=== PATIENT | female | born 1935 | race Caucasian/White ===

== ENCOUNTER 2016-05-09 14:25 | Inpatient (IN) | payer OTHER, BC ==
[~2016-05-09] VITALS: Ht 162.6 cm; Wt 55.0 kg
[~2016-05-09 14:25] MED LIST: ASPIRIN EC325 MG PO; CELECOXIB200 MG PO; ENDOCET 5-3251 EACH PO; IRON325 M1 PO; LOPRESSOR25 MG PO; OXYCONTIN10 MG PO; OXYCONTIN30 MG PO; PREDNISONE10 MG PO; PRILOSEC40 MG PO; PRINIVIL10 MG PO; SUCRALFATE1 GM PO; TYLENOL EXTRA500 MG PO; VENTOLIN HFA18 GM IH; VIACTIV SOFT C1 EACH PO; ZANTAC150 MG PO; ZOFRAN4 MG PO; [UNRECOGNIZED DRUG - OTHER] TP; [UNRECOGNIZED DRUG - OTHER] TP; [UNRECOGNIZED DRUG - OTHER] TP
[2016-05-09 15:20] LABS: HEMATOCRIT 48.1 % (36.0-46.0); MCH 29.2 PG (29.0-34.0); MCHC 33.1 G/DL (30.0-36.0); MCV 88.4 FL (83-99); MEAN PLAT.VOLUME 11.4 uM^3 (9.5-12.4); PLATELET COUNT 265 K/uL (156-360); RBC DIS.WIDTH-CV 13.5 % (11.8-14.6); RED BLOOD COUNT 5.44 M/uL (3.80-5.20); WHITE BLOOD COUNT 19.8 K/uL (4.1-10.2)
[2016-05-09 15:34] LABS: CHLORIDE 98 mEq/L (99-109); POTASSIUM 4.1 mEq/L (3.7-5.4); SODIUM 137 mEq/L (136-147)
[2016-05-09 15:37] LABS: GLUCOSE 118 mg/dL (70-99)
[2016-05-09 15:38] LABS: ANION GAP 16 MEQ/L (2-14)
[2016-05-09 15:39] LABS: TOTAL BILIRUBIN 0.7 mg/dL (0.0-1.0)
[2016-05-09 15:40] LABS: ALKALINE PHOSPHATASE 102 IU/L (3-129); GFR ESTIMATE (CALCULATED) > 59 mL/min/
[2016-05-09 15:41] LABS: UREA NITROGEN (BUN) 13 mg/dL (9-23)
[2016-05-09] MEDS ORDERED: CARAFATE1 GM PO (18:09)
[2016-05-09] MEDS ORDERED: DAILY VITE1 EAC1 PO (18:10)
[2016-05-09] MEDS ORDERED: TRAMADOL HCL50 MG PO (18:10)
[2016-05-09 18:36] LABS: INTER. NORMALIZED RATIO 1.1; PROTHROMBIN TIME 11.1 (9.2-11.2)
[2016-05-09 18:46] LABS: ADD MIUA? YES; BILIRUBIN NEGATIVE; BLOOD TRACE; COLOR YELLOW ((YELLOW)); GLUCOSE (STRIP) NEGATIVE; KETONES NEGATIVE; LEUKOCYTES NEGATIVE; NITRITE NEGATIVE; PROTEIN (STRIP) NEGATIVE
[2016-05-09 19:25] LABS: BACTERIA NONE SEEN; CASTS NONE SEEN /LPF; CRYSTALS NONE SEEN; EPITHELIAL CELLS RARE; MUCUS NONE SEEN; PATHOLOGICAL CAST NONE SEEN; SMALL ROUND CELL NONE SEEN; UCUL ADDED? NO; YEAST-LIKE CELL NONE SEEN
[2016-05-09 22:57] VITALS: BP 153/67
[2016-05-10 03:53] VITALS: BP 148/60
[2016-05-10 08:10] LABS: ALKALINE PHOSPHATASE 66 IU/L (3-129); ANION GAP 8 MEQ/L (2-14); CHLORIDE 98 MEQ/L (99-109); GFR ESTIMATE (CALCULATED) > 59 mL/min/; GLUCOSE 170 mg/dL (70-99); POTASSIUM 3.8 MEQ/L (3.7-5.4); SAMPLE HEMOLYSIS CHECK 0; SAMPLE ICTERIC CHECK 0; SAMPLE LIPEMIA CHECK 0; SODIUM 132 MEQ/L (136-147); TOTAL BILIRUBIN 0.5 MG/DL (0.0-1.0); UREA NITROGEN (BUN) 9 mg/dL (9-23)
[2016-05-10 08:18] LABS: HEMATOCRIT 38.9 % (36.0-46.0); MCH 29.6 PG (29.0-34.0); MCHC 32.9 G/DL (30.0-36.0); MEAN PLAT.VOLUME 11.5 uM^3 (9.5-12.4); PLATELET COUNT 218 K/uL (156-360); RBC DIS.WIDTH-CV 13.5 % (11.8-14.6); RBC DIS.WIDTH-SD 45.1 % (39-53); WHITE BLOOD COUNT 18.4 K/uL (4.1-10.2)
[2016-05-10 08:19] LABS: RED BLOOD COUNT 4.32 M/uL (3.80-5.20)
[2016-05-10 08:35] VITALS: BP 134/63
[2016-05-10 12:49] VITALS: BP 138/66
[2016-05-10 16:00] VITALS: BP 126/62
[2016-05-10 19:30] VITALS: BP 165/80
[2016-05-11 04:00] VITALS: BP 165/87
[2016-05-11 06:42] VITALS: BP 160/76
[2016-05-11 09:17] LABS: HEMATOCRIT 40.4 % (36.0-46.0); MCH 29.9 PG (29.0-34.0); MCHC 32.9 G/DL (30.0-36.0); MCV 90.8 FL (83-99); MEAN PLAT.VOLUME 11.6 uM^3 (9.5-12.4); PLATELET COUNT 213 K/uL (156-360); RBC DIS.WIDTH-CV 13.8 % (11.8-14.6); RBC DIS.WIDTH-SD 45.9 % (39-53); RED BLOOD COUNT 4.45 M/uL (3.80-5.20); WHITE BLOOD COUNT 14.4 K/uL (4.1-10.2)
[2016-05-11 09:43] LABS: ALKALINE PHOSPHATASE 74 IU/L (3-129); ANION GAP 11 MEQ/L (2-14); CHLORIDE 99 MEQ/L (99-109); GFR ESTIMATE (CALCULATED) > 59 mL/min/; GLUCOSE 154 mg/dL (70-99); POTASSIUM 4.3 MEQ/L (3.7-5.4); SAMPLE HEMOLYSIS CHECK 0; SAMPLE ICTERIC CHECK 0; SAMPLE LIPEMIA CHECK 0; SODIUM 136 MEQ/L (136-147); TOTAL BILIRUBIN 0.6 MG/DL (0.0-1.0); UREA NITROGEN (BUN) 6 mg/dL (9-23)
[2016-05-11 11:25] VITALS: BP 164/74
[2016-05-11 16:02] VITALS: BP 117/58
[2016-05-11 23:29] VITALS: BP 165/78
[2016-05-12 07:54] VITALS: BP 148/67
[2016-05-12 15:18] VITALS: BP 161/73
[2016-05-12] MEDS ORDERED: AMOXICILLIN500 MG PO (15:58)
== END 2016-05-12 16:32 | disposition home health service (06) | DRG 417 ==
LOC: EME 14:25 → SDC 19:57 → 2EAST 21:10 → 2SOUTH 21:10 → 2EAST 22:49
PROVIDERS: Emergency Medicine; Surgery
PROC: 0FT44ZZ Resection of Gallbladder, Percutaneous Endoscopic Approach (ICD-10-PCS; principal; 2016-05-09)
DX: K81.2 Acute cholecystitis with chronic cholecystitis (principal); K65.9 Peritonitis, unspecified; B95.2 Enterococcus as the cause of diseases classified elsewhere; R26.81 Unsteadiness on feet; E86.0 Dehydration; E86.1 Hypovolemia; G89.29 Other chronic pain; M54.9 Dorsalgia, unspecified; I10 Essential (primary) hypertension; K21.9 Gastro-esophageal reflux disease without esophagitis; F32.9 Major depressive disorder, single episode, unspecified; M35.3 Polymyalgia rheumatica; E78.5 Hyperlipidemia, unspecified
CPT/HCPCS: 74177; 76705; 80053; 81003; 85027; 85610; 85730; 86850; 86900; 86901; 87070; 87075; 87077; 87186; 87205; 88304; 93005; 99281; 99285; G0378; J0131; J0295; J1100; J1170; J1644; J2270; J2405; J2710; J3010; J7030; J7050; J7120

== ENCOUNTER 2016-05-18 12:59 | Inpatient (IN) | payer OTHER, BC ==
[~2016-05-18] VITALS: Ht 167.6 cm; Wt 77.0 kg
[~2016-05-18 12:59] MED LIST changes: +AMOXICILLIN500 MG PO; +CARAFATE1 GM PO; +DAILY VITE1 EAC1 PO; +TRAMADOL HCL50 MG PO
[2016-05-18 14:04] LABS: HEMATOCRIT 40.4 % (36.0-46.0); MCH 29.2 PG (29.0-34.0); MCHC 32.9 G/DL (30.0-36.0); MCV 88.6 FL (83-99); RED BLOOD COUNT 4.56 M/uL (3.80-5.20); WHITE BLOOD COUNT 18.2 K/uL (4.1-10.2)
[2016-05-18 14:08] LABS: MEAN PLAT.VOLUME 10.4 uM^3 (9.5-12.4); PLATELET COUNT 453 K/uL (156-360)
[2016-05-18 14:16] LABS: CHLORIDE 101 mEq/L (99-109); POTASSIUM 4.6 mEq/L (3.7-5.4); SODIUM 139 mEq/L (136-147)
[2016-05-18 14:18] LABS: GLUCOSE 95 mg/dL (70-99)
[2016-05-18 14:19] LABS: ANION GAP 10 MEQ/L (2-14)
[2016-05-18 14:20] LABS: TOTAL BILIRUBIN 0.4 mg/dL (0.0-1.0)
[2016-05-18 14:21] LABS: ALKALINE PHOSPHATASE 152 IU/L (3-129)
[2016-05-18 14:22] LABS: GFR ESTIMATE (CALCULATED) > 59 mL/min/
[2016-05-18 14:23] LABS: UREA NITROGEN (BUN) 11 mg/dL (9-23)
[2016-05-18 14:25] LABS: LIPASE 51 U/L (1.0-51.0)
[2016-05-18] MEDS ORDERED: PERCOCET 5/31 TABLET PO (17:07)
[2016-05-18] MEDS ORDERED: OXYCONTIN10 MG PO (17:07)
[2016-05-18 18:33] LABS: ADD MIUA? NO; BILIRUBIN NEGATIVE; BLOOD NEGATIVE; COLOR YELLOW ((YELLOW)); GLUCOSE (STRIP) NEGATIVE; KETONES NEGATIVE; LEUKOCYTES NEGATIVE; NITRITE NEGATIVE; PROTEIN (STRIP) NEGATIVE; SPECIFIC GRAVITY 1.036 (1.000-1.030); UCUL ADDED? NO
[2016-05-18] MEDS ORDERED: GUMMI BEAR MUL1 EACH PO (19:03)
[2016-05-18 21:30] VITALS: BP 141/70
[2016-05-18 23:45] VITALS: BP 120/60
[2016-05-19] VITALS (7 sets, daily range): BP systolic 120–163; BP diastolic 57–71
[2016-05-19 07:18] LABS: HEMATOCRIT 36.7 % (36.0-46.0); MCH 29.7 PG (29.0-34.0); MCV 90.2 FL (83-99); MEAN PLAT.VOLUME 10.6 uM^3 (9.5-12.4); PLATELET COUNT 448 K/uL (156-360); RBC DIS.WIDTH-CV 14.1 % (11.8-14.6); RBC DIS.WIDTH-SD 46.7 % (39-53); RED BLOOD COUNT 4.07 M/uL (3.80-5.20); WHITE BLOOD COUNT 17.3 K/uL (4.1-10.2)
[2016-05-19 07:41] LABS: ALKALINE PHOSPHATASE 118 IU/L (3-129); ANION GAP 6 MEQ/L (2-14); CHLORIDE 98 MEQ/L (99-109); GFR ESTIMATE (CALCULATED) > 59 mL/min/; GLUCOSE 123 mg/dL (70-99); POTASSIUM 4.8 MEQ/L (3.7-5.4); SAMPLE HEMOLYSIS CHECK 0; SAMPLE ICTERIC CHECK 0; SAMPLE LIPEMIA CHECK 0; SODIUM 134 MEQ/L (136-147); TOTAL BILIRUBIN 0.5 MG/DL (0.0-1.0); UREA NITROGEN (BUN) 7 mg/dL (9-23)
[2016-05-19 12:02] LABS: INTER. NORMALIZED RATIO 1.2; PTT 36.9 (25-32)
[2016-05-20 03:35] VITALS: BP 121/72; BP 151/72
[2016-05-20 07:17] LABS: HEMATOCRIT 38.7 % (36.0-46.0); MCH 29.3 PG (29.0-34.0); MCHC 32.6 G/DL (30.0-36.0); MEAN PLAT.VOLUME 10.9 uM^3 (9.5-12.4); PLATELET COUNT 520 K/uL (156-360); RBC DIS.WIDTH-CV 14.2 % (11.8-14.6); RBC DIS.WIDTH-SD 46.9 % (39-53); WHITE BLOOD COUNT 17.5 K/uL (4.1-10.2)
[2016-05-20 07:45] LABS: ALKALINE PHOSPHATASE 136 IU/L (3-129); ANION GAP 9 MEQ/L (2-14); CHLORIDE 100 MEQ/L (99-109); GFR ESTIMATE (CALCULATED) > 59 mL/min/; GLUCOSE 134 mg/dL (70-99); POTASSIUM 4.5 MEQ/L (3.7-5.4); SAMPLE HEMOLYSIS CHECK 0; SAMPLE ICTERIC CHECK 0; SAMPLE LIPEMIA CHECK 0; SODIUM 136 MEQ/L (136-147); TOTAL BILIRUBIN 0.6 MG/DL (0.0-1.0); UREA NITROGEN (BUN) 6 mg/dL (9-23)
[2016-05-20 08:02] VITALS: BP 113/54
[2016-05-20 17:18] VITALS: BP 125/60
[2016-05-21 00:19] VITALS: BP 171/78
[2016-05-21 06:13] VITALS: BP 174/88
[2016-05-21 15:31] VITALS: BP 158/88
[2016-05-22 00:16] VITALS: BP 153/73
[2016-05-22 07:25] VITALS: BP 181/81
[2016-05-22 15:40] VITALS: BP 118/59
[2016-05-22 23:24] VITALS: BP 144/74
[2016-05-23 07:18] LABS: HEMATOCRIT 40.9 % (36.0-46.0); MCH 28.6 PG (29.0-34.0); MCV 89.3 FL (83-99); MEAN PLAT.VOLUME 10.3 uM^3 (9.5-12.4); PLATELET COUNT 657 K/uL (156-360); RBC DIS.WIDTH-SD 45.9 % (39-53); RED BLOOD COUNT 4.58 M/uL (3.80-5.20)
[2016-05-23 07:20] LABS: WHITE BLOOD COUNT 11.7 K/uL (4.1-10.2)
[2016-05-23 08:00] VITALS: BP 131/64
[2016-05-23] MEDS ORDERED: OXYCODONE HCL5 MG PO (14:41)
[2016-05-23] MEDS ORDERED: SENNA PLUS TAB1 EACH PO (14:41)
[2016-05-23] MEDS ORDERED: LEVOFLOXACIN750 MG PO (14:46)
[2016-05-23] MEDS ORDERED: ZOFRAN4 MG/2 ML IM (17:49)
[2016-05-23] MEDS ORDERED: TYLENOL REGULA325 MG PO (17:49)
== END 2016-05-23 15:57 | DRG 920 ==
LOC: EME 12:59 → EDOF 19:06 → 2EAST 19:06
PROVIDERS: Radiology Diagnostic Radiology; Surgery
PROC: 0W9G30Z Drainage of Peritoneal Cavity with Drainage Device, Percutaneous Approach (ICD-10-PCS; principal; 2016-05-19)
DX: K91.873 Postprocedural seroma of a digestive system organ or structure following other procedure (principal); K56.7 Ileus, unspecified; Y83.6 Removal of other organ (partial) (total) as the cause of abnormal reaction of the patient, or of later complication, without mention of misadventure at the time of the procedure; R26.2 Difficulty in walking, not elsewhere classified; B95.2 Enterococcus as the cause of diseases classified elsewhere; G89.29 Other chronic pain; K21.9 Gastro-esophageal reflux disease without esophagitis; M35.3 Polymyalgia rheumatica; F32.9 Major depressive disorder, single episode, unspecified; Z96.651 Presence of right artificial knee joint
CPT/HCPCS: 49405; 71020; 74177; 80053; 81003; 83605; 83690; 85027; 85610; 85730; 87040; 87070; 87075; 87077; 87186; 87205; 97530 GP; 99281; 99285; C1729; C1769; J1170; J2270; J2405; J2543; J3010; J7030; J7050

== ENCOUNTER 2016-05-23 11:58 | Inpatient (IN) | payer OTHER, BC ==
[~2016-05-23] VITALS: Ht 165.1 cm; Wt 76.6 kg
[~2016-05-23 11:58] MED LIST changes: +GUMMI BEAR MUL1 EACH PO; +PERCOCET 5/31 TABLET PO
[2016-05-23] MEDS ORDERED: OXYCODONE HCL5 MG PO (14:41)
[2016-05-23] MEDS ORDERED: SENNA PLUS TAB1 EACH PO (14:41)
[2016-05-23] MEDS ORDERED: LEVOFLOXACIN750 MG PO (14:46)
[2016-05-23 16:09] VITALS: BP 133/88
[2016-05-23] MEDS ORDERED: ZOFRAN4 MG/2 ML IM (17:49)
[2016-05-23] MEDS ORDERED: TYLENOL REGULA325 MG PO (17:49)
[2016-05-24 00:06] VITALS: BP 139/65
[2016-05-24 05:55] LABS: HEMATOCRIT 39.8 % (36.0-46.0); MCH 29.5 PG (29.0-34.0); MCHC 32.7 G/DL (30.0-36.0); MCV 90.5 FL (83-99); MEAN PLAT.VOLUME 10.5 uM^3 (9.5-12.4); PLATELET COUNT 635 K/uL (156-360); RBC DIS.WIDTH-SD 46.3 % (39-53); WHITE BLOOD COUNT 11.4 K/uL (4.1-10.2)
[2016-05-24 06:00] VITALS: BP 121/59
[2016-05-24 06:26] LABS: ANION GAP 7 MEQ/L (2-14); CHLORIDE 102 MEQ/L (99-109); GFR ESTIMATE (CALCULATED) > 59 mL/min/; GLUCOSE 99 mg/dL (70-99); POTASSIUM 3.9 MEQ/L (3.7-5.4); SAMPLE HEMOLYSIS CHECK 0; SAMPLE ICTERIC CHECK 0; SAMPLE LIPEMIA CHECK 0; SODIUM 138 MEQ/L (136-147); UREA NITROGEN (BUN) 13 mg/dL (9-23)
[2016-05-24 06:28] LABS: ALKALINE PHOSPHATASE 88 IU/L (3-129); TOTAL BILIRUBIN 0.4 MG/DL (0.0-1.0)
[2016-05-24 15:10] VITALS: BP 134/58
[2016-05-25 05:42] VITALS: BP 144/69
[2016-05-25 15:22] VITALS: BP 94/58
[2016-05-25 16:00] VITALS: BP 103/57
[2016-05-25 20:10] VITALS: BP 104/55
[2016-05-25 21:36] VITALS: BP 120/60; BP 125/60
[2016-05-26 05:02] VITALS: BP 123/58
[2016-05-26 15:21] VITALS: BP 100/54
[2016-05-27 04:24] VITALS: BP 132/74
[2016-05-27 15:38] VITALS: BP 139/65
[2016-05-28 05:43] VITALS: BP 131/63
[2016-05-28 15:41] VITALS: BP 121/58
[2016-05-29 04:54] LABS: HEMATOCRIT 41.5 % (36.0-46.0); MCH 28.8 PG (29.0-34.0); MCHC 32.3 G/DL (30.0-36.0); MCV 89.2 FL (83-99); MEAN PLAT.VOLUME 10.6 uM^3 (9.5-12.4); PLATELET COUNT 544 K/uL (156-360); RBC DIS.WIDTH-SD 44.8 % (39-53); RED BLOOD COUNT 4.65 M/uL (3.80-5.20)
[2016-05-29 05:02] LABS: CHLORIDE 105 mEq/L (99-109); SODIUM 142 mEq/L (136-147)
[2016-05-29 05:04] LABS: POTASSIUM 5.1 mEq/L (3.7-5.4)
[2016-05-29 05:05] LABS: GLUCOSE 103 mg/dL (70-99)
[2016-05-29 05:06] LABS: ANION GAP 9 MEQ/L (2-14)
[2016-05-29 05:07] LABS: TOTAL BILIRUBIN 0.2 mg/dL (0.0-1.0)
[2016-05-29 05:08] LABS: ALKALINE PHOSPHATASE 108 IU/L (3-129); GFR ESTIMATE (CALCULATED) > 59 mL/min/
[2016-05-29 05:10] LABS: UREA NITROGEN (BUN) 15 mg/dL (9-23)
[2016-05-29 15:39] VITALS: BP 121/60
[2016-05-30 05:39] VITALS: BP 120/58
[2016-05-30] MEDS ORDERED: FOLIC ACID1 MG PO (08:14)
[2016-05-30] MEDS ORDERED: CARAFATE1 GM PO (08:14)
[2016-05-30] MEDS ORDERED: AMOXICILLIN500 MG PO (08:14)
[2016-05-30] MEDS ORDERED: SENNA PLUS TAB1 EACH PO (08:14)
[2016-05-30] MEDS ORDERED: ASCORBIC ACID500 M3 PO (08:14)
[2016-05-30 15:00] VITALS: BP 122/59
== END 2016-05-30 15:29 | disposition home health service (06) | DRG 945 ==
LOC: 3WEST 11:58
PROVIDERS: Physical Medicine & Rehabilitation Pain Medicine; Surgery
PROC: F07M0ZZ Range of Motion and Joint Mobility Treatment of Musculoskeletal System - Whole Body (ICD-10-PCS; principal; 2016-05-23)
DX: R53.1 Weakness (principal); T80.1XXA Vascular complications following infusion, transfusion and therapeutic injection, initial encounter; K91.873 Postprocedural seroma of a digestive system organ or structure following other procedure; R26.2 Difficulty in walking, not elsewhere classified; I10 Essential (primary) hypertension; Z96.651 Presence of right artificial knee joint; M35.3 Polymyalgia rheumatica; K21.9 Gastro-esophageal reflux disease without esophagitis; F32.9 Major depressive disorder, single episode, unspecified; E77.8 Other disorders of glycoprotein metabolism; E88.09 Other disorders of plasma-protein metabolism, not elsewhere classified; H91.90 Unspecified hearing loss, unspecified ear; M25.522 Pain in left elbow; Y83.6 Removal of other organ (partial) (total) as the cause of abnormal reaction of the patient, or of later complication, without mention of misadventure at the time of the procedure; I80.8 Phlebitis and thrombophlebitis of other sites; E83.51 Hypocalcemia; G89.29 Other chronic pain; Y84.8 Other medical procedures as the cause of abnormal reaction of the patient, or of later complication, without mention of misadventure at the time of the procedure
CPT/HCPCS: 80053; 85027; 87075; 87205; 93971; 97110 GO; 97530 GP; Q0169

== ENCOUNTER → 2016-06-03 | Outpatient (CLI) | payer OTHER, BC ==
[~2016-06-03] MED LIST changes: +ASCORBIC ACID500 M3 PO; +FOLIC ACID1 MG PO; +LEVOFLOXACIN750 MG PO; +OXYCODONE HCL5 MG PO; +SENNA PLUS TAB1 EACH PO; +TYLENOL REGULA325 MG PO; +ZOFRAN4 MG/2 ML IM
== END | disposition home or self-care (01) ==
LOC: AMB 10:26
DX: K91.872 Postprocedural seroma of a digestive system organ or structure following a digestive system procedure (principal)
CPT/HCPCS: 99213

== ENCOUNTER 2016-06-09 19:30 | Emergency (ER) | payer OTHER, BC ==
[~2016-06-09] VITALS: Ht 167.6 cm; Wt 78.0 kg
[2016-06-09 23:06] VITALS: BP 156/76
[2016-06-13] MEDS ORDERED: OXYCODONE-ACET500 ML PO (14:28)
[2016-06-13] MEDS ORDERED: LISINOPRIL10 MG PO (14:32)
== END 2016-06-09 23:29 | disposition home or self-care (01) ==
LOC: EME 19:30
DX: M25.552 Pain in left hip (principal); I10 Essential (primary) hypertension
CPT/HCPCS: 73502; 99281; 99283; J3010

== ENCOUNTER → 2016-06-13 | Outpatient (CLI) | payer OTHER, BC ==
[~2016-06-13] MED LIST changes: +LISINOPRIL10 MG PO; +OXYCODONE-ACET500 ML PO
== END | disposition home or self-care (01) ==
LOC: AMB 14:02
DX: Z09 Encounter for follow-up examination after completed treatment for conditions other than malignant neoplasm (principal); M25.559 Pain in unspecified hip